=== PATIENT | male | born 1995 | race Caucasian/White ===

== ENCOUNTER 2019-04-29 19:50 | Emergency (ER) | payer BC ==
[~2019-04-29] VITALS: Ht 182.9 cm; Wt 122.5 kg
[~2019-04-29 19:50] MED LIST: NOHOMEMEDICATIONS; ZOFRAN 4 MG ORAL4 M1 DIS
[2019-04-29 20:27] LABS: INFLUENZA A ANTIGEN Negative (Negative)
[2019-04-29 20:33] LABS: ABSOLUTE LYMPHOCYTES 0.9 thou/uL (0.8-5.3); ABSOLUTE MONOCYTES 0.7 thou/uL (0.0-1.2); ABSOLUTE NEUTROPHILS 3.2 thou/uL (1.6-8.1); BASOPHILS 0.4 %; HEMATOCRIT 44.7 % (42.0-52.0); LYMPHOCYTES 19.3 %; MCH 29.1 pg (26.0-34.0); MCHC 35.7 g/dL (28.0-37.0); MCV 81.3 fL (80.0-100.0); MPV 8.9 fl. (7.2-11.1); NUCLEATED RBCS 0 /100WBC; PLATELET COUNT* 192 thou/uL (150-400); POLYS 66.3 %; RDW-CV 12.7 % (10.5-14.5); WBC 4.8 thou/uL (4.0-11.0)
[2019-04-29 20:40] LABS: CALCIUM 8.7 mg/dL (8.5-10.1); CREATININE 1.2 mg/dL (0.6-1.3); POTASSIUM 3.6 mmol/L (3.5-5.1)
[2019-04-29 20:45] LABS: ALBUMIN 3.7 g/dL (3.4-5.0); TOTAL BILIRUBIN 0.6 mg/dL (<0.1-1.0); TOTAL PROTEIN 7.5 g/dL (6.4-8.2)
[2019-04-29] MEDS ORDERED: PROMETH-CODEIN 65 ML PO (20:47)
[2019-04-29] MEDS ORDERED: TAMIFLU75 MG PO (20:47)
[2019-04-29] MEDS ORDERED: ZOFRAN ODT4 MG PO (20:47)
[2019-04-29 21:03] VITALS: BP 120/76
== END 2019-04-29 22:00 | disposition home or self-care (01) ==
LOC: M.ERS 19:50
PROVIDERS: Emergency Medicine
DX: J10.1 Influenza due to other identified influenza virus with other respiratory manifestations (principal); R19.7 Diarrhea, unspecified; Z88.0 Allergy status to penicillin